=== PATIENT | female | born 1995 | race Caucasian/White ===

== ENCOUNTER 2018-12-06 15:15 | Emergency (ER) | payer SELFPAY ==
[2018-12-06 15:37] VITALS: BP 126/86
[2018-12-06] MEDS ORDERED: Ketorolac 30 MG/ML SDV IVPUSH ONE (16:07)
--- NOTE | 2018-12-06 16:25 | EDM.PDOC ---
ED HPI GENERAL MEDICAL PROBLEM - General Chief Complaint: Abdominal Pain Stated Complaint: RIGHT ABDOMINAL PAIN Time Seen by Provider: 12/06/18 15:33 Source of Information: Reports: Patient History Limitations: Reports: No Limitations - History of Present Illness INITIAL COMMENTS - FREE TEXT/NARRATIVE: 23 yo F A0 comes in today for RLQ abdominal pain that radiates to the suprapubic area as well as the top of her R leg x 2.5 days. She also c/o some abdominal bloating and CHEN. She states the pain had random onset and she denies any recent trauma to the area. Putting pressure on the area, holding her breath , and crouching in a ball make the pain better. Movement or letting go of pressure makes the pain worse. She said the last time she had this pain was when she had appendicitis in July 2018 (4 mo ago) which she had removed by Dr. Burch with no complications. She still has her GB. She denies F/C, vomiting, diarrhea, constipation, GI/ complaints. She states it's possible she's as she has unprotected sex with her boyfriend, and she may have an STD as she did have unprotected sex with a stranger about a month ago. No recent heavy lifting or h/o hernia or ovarian cysts. Last time she saw an BODY CLEANER was 2 years ago where they found a "cervical problem" but she is not sure what that is and didn't follow up. She denies any vaginal discharge, foul smelling odor, or pain with intercourse. Her LNMP was 11/28/18 and she did notice it was heavier at first with spotting the last few days. No other complaints at this time. PCP is Dr. Don Johnson in [place]. BODY CLEANER is Dr. Yohannes Campo at [facility]. Right Lower Abdominal Pain Score (Numeric/FACES): 8 - Related Data Allergies Allergy/AdvReac Type Severity Reaction Status Date / Time No Known Allergies Allergy Verified 07/27/18 08:53 Home Meds: Home Meds . 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 Cardiovascular History: Reports: Hypertension Other Cardiovascular History: during . Respiratory History: Reports: Asthma, Bronchitis, Recurrent Gastrointestinal History: Reports: Chronic Constipation Genitourinary History: Reports: UTI, Recurrent BODY CLEANER History: Reports: Other BODY CLEANER History: states has "an enlarged mass on my right ovary or cervix. " States was Dx'd one yr ago and never followed up. Neurological History: Reports: Migraines Psychiatric History: Reports: Addiction, Anxiety, Depression Hematologic History: Reports: Anemia - Infectious Disease History Other Infectious Disease History: STD's - Past Surgical History Head Surgeries/Procedures: Reports: None Social & Family History - Tobacco Use Smoking Status *Q: Current Every Day Smoker Years of Tobacco use: 4 Packs/Tins Daily: 0 Used Tobacco, but Quit: Yes Month/Year Tobacco Last Used: couple months ago Tobacco Use Comment: pt vapes now - Caffeine Use Caffeine Use: Reports: Coffee, Energy Drinks, Soda, Tea - Recreational Drug Use Recreational Drug Use: Yes Drug Use in Last 12 Months: No - Living Situation & Occupation Living situation: Reports: Single, with Family (has 3 children (2 year old twins , and a 3 year old).), Other (States that she is homeless, but currently staying with someone show knows.) ED ROS GENERAL - Review of Systems Review Of Systems: See Below Constitutional: Reports: No Symptoms. Denies: Fever, Chills, Decreased Appetite HEENT: Reports: No Symptoms Respiratory: Reports: No Symptoms Cardiovascular: Reports: No Symptoms Endocrine: Reports: No Symptoms GI/Abdominal: Reports: Abdominal Pain (RLQ radiating to suprapubic region and top of R leg). Denies: Diarrhea, Decreased Appetite, Nausea, Vomiting : Reports: Irregular Menses (was on Depoprovera and then had her 3 children). Denies: Discharge, Dysuria, Flank Pain, Frequency, Hematuria Musculoskeletal: Reports: No Symptoms Skin: Reports: No Symptoms Neurological: Reports: No Symptoms Psychiatric: Reports: No Symptoms Hematologic/Lymphatic: Reports: No Symptoms Immunologic: Reports: No Symptoms ED EXAM, GI/ABD - Physical Exam Exam: See Below Exam Limited By: No Limitations General Appearance: Alert, WD/WN, Mild Distress Eyes: Bilateral: Normal Appearance, EOMI Ears: Normal External Exam, Hearing Grossly Normal Nose: Normal Inspection, Normal Mucosa, No Blood Throat/Mouth: Normal Inspection, Normal Lips, Normal Teeth, Normal Gums, Normal Oropharynx, Normal Voice, No Airway Compromise Head: Atraumatic, Normocephalic Neck: Normal Inspection, Supple, Non-Tender, Full Range of Motion Respiratory/Chest: No Respiratory Distress, Lungs Clear, Normal Breath Sounds, No Accessory Muscle Use, Chest Non-Tender Cardiovascular: Normal Peripheral Pulses, Regular Rate, Rhythm, No Edema, No Gallop, No JVD, No Murmur, No Rub GI/Abdominal Exam: Normal Bowel Sounds, Soft, Non-Tender, No Organomegaly, No Abnormal Bruit, No Mass, Pelvis Stable, Distended (mild), Other (obturator sign positive, psoas and mcburney's pt negative). No: Guarding, Rebound, Hernia (Female) Exam: Deferred Back Exam: Normal Inspection, Full Range of Motion, NT Extremities: Normal Inspection, Normal Range of Motion, Non-Tender, Normal Capillary Refill, No Pedal Edema Psychiatric: Normal Affect, Normal Mood Skin Exam: Warm, Dry, Intact, Normal Color, No Rash Course - Vital Signs Last Recorded V/S: Last Vital Signs Temp 98.5 F 12/06/18 15:33 Pulse 73 12/06/18 15:33 Resp 18 12/06/18 15:33 BP 126/86 12/06/18 15:33 Pulse Ox 100 12/06/18 15:33 - Orders/Labs/Meds Orders: Active Orders 24 hr Category Date Time Status GC/CHLAMYDIA BY PCR [MOLEC] Stat Lab 12/06/18 16:22 Received Labs: Laboratory Tests 12/06/18 12/06/18 12/06/18 Range/Units 16:07 16:07 16:29 WBC 8.01 (3.98-10.04) K/mm3 RBC 4.13 (3.98-5.22) M/mm3 Hgb 12.7 (11.2-15.7) gm/L Hct 37.1 (34.1-44.9) % MCV 89.8 (79.4-94.8) fl MCH 30.8 (25.6-32.2) pg MCHC 34.2 (32.2-35.5) g/dl RDW Std Deviation 39.2 (36.4-46.3) fL Plt Count 253 (182-369) K/mm3 MPV 9.5 (9.4-12.3) fl Neut % (Auto) 60.2 (34.0-71.1) % Lymph % (Auto) 31.2 (19.3-51.7) % [place] % (Auto) 7.0 (4.7-12.5) % Eos % (Auto) 1.0 (0.7-5.8) Baso % (Auto) 0.5 (0.1-1.2) % Neut # (Auto) 4.82 (1.56-6.13) K/mm3 Lymph # (Auto) 2.50 (1.18-3.74) K/mm3 [place] # (Auto) 0.56 H (0.24-0.36) K/mm3 Eos # (Auto) 0.08 (0.04-0.36) K/mm3 Baso # (Auto) 0.04 (0.01-0.08) K/mm3 Sodium 142 (136-145) mEq/L Potassium 3.9 (3.5-5.1) mEq/L Chloride 106 (98-107) mEq/L Carbon Dioxide 27 (21-32) mEq/L Anion Gap 12.9 (5-15) BUN 11 (7-18) mg/dL Creatinine 0.8 (0.55-1.02) mg/dL Est Cr Clr Drug Dosing 99.25 mL/min Estimated GFR (MDRD) > 60 (>60) mL/min BUN/Creatinine Ratio 13.8 L (14-18) Glucose 91 (74-106) mg/dL Calcium 10.2 H (8.5-10.1) mg/dL Total Bilirubin 0.5 (0.2-1.0) mg/dL AST 16 (15-37) U/L ALT 20 (14-59) U/L Alkaline Phosphatase 126 H (46-116) U/L C-Reactive Protein < 0.2 (<1.0) mg/dL Total Protein 8.0 (6.4-8.2) g/dl Albumin 4.0 (3.4-5.0) g/dl Globulin 4.0 gm/dL Albumin/Globulin Ratio 1.0 (1-2) Urine Color Yellow (Yellow) Urine Appearance Clear (Clear) Urine pH 7.5 (5.0-8.0) Ur Specific Newton 1.025 (1.005-1.030) Urine Protein Negative (Negative) Urine Glucose (UA) Negative (Negative) Urine Ketones Negative (Negative) Urine Occult Blood Negative (Negative) Urine Nitrite Negative (Negative) Urine Bilirubin Negative (Negative) Urine Urobilinogen 0.2 (0.2-1.0) Ur Leukocyte Esterase Negative (Negative) Urine HCG, Qual (NEGATIVE) 12/06/18 Range/Units 16:29 WBC (3.98-10.04) K/mm3 RBC (3.98-5.22) M/mm3 Hgb (11.2-15.7) gm/L Hct (34.1-44.9) % MCV (79.4-94.8) fl MCH (25.6-32.2) pg MCHC (32.2-35.5) g/dl RDW Std Deviation (36.4-46.3) fL Plt Count (182-369) K/mm3 MPV (9.4-12.3) fl Neut % (Auto) (34.0-71.1) % Lymph % (Auto) (19.3-51.7) % [place] % (Auto) (4.7-12.5) % Eos % (Auto) (0.7-5.8) Baso % (Auto) (0.1-1.2) % Neut # (Auto) (1.56-6.13) K/mm3 Lymph # (Auto) (1.18-3.74) K/mm3 [place] # (Auto) (0.24-0.36) K/mm3 Eos # (Auto) (0.04-0.36) K/mm3 Baso # (Auto) (0.01-0.08) K/mm3 Sodium (136-145) mEq/L Potassium (3.5-5.1) mEq/L Chloride (98-107) mEq/L Carbon Dioxide (21-32) mEq/L Anion Gap (5-15) BUN (7-18) mg/dL Creatinine (0.55-1.02) mg/dL Est Cr Clr Drug Dosing mL/min Estimated GFR (MDRD) (>60) mL/min BUN/Creatinine Ratio (14-18) Glucose (74-106) mg/dL Calcium (8.5-10.1) mg/dL Total Bilirubin (0.2-1.0) mg/dL AST (15-37) U/L ALT (14-59) U/L Alkaline Phosphatase (46-116) U/L C-Reactive Protein (<1.0) mg/dL Total Protein (6.4-8.2) g/dl Albumin (3.4-5.0) g/dl Globulin gm/dL Albumin/Globulin Ratio (1-2) Urine Color (Yellow) Urine Appearance (Clear) Urine pH (5.0-8.0) Ur Specific Newton (1.005-1.030) Urine Protein (Negative) Urine Glucose (UA) (Negative) Urine Ketones (Negative) Urine Occult Blood (Negative) Urine Nitrite (Negative) Urine Bilirubin (Negative) Urine Urobilinogen (0.2-1.0) Ur Leukocyte Esterase (Negative) Urine HCG, Qual Negative (NEGATIVE) Meds: Medications Discontinued Medications Generic Name Dose Route Start Last Admin Trade Name Freq PRN Reason Stop Dose Admin Ketorolac Tromethamine 30 mg 12/06/18 16:07 12/06/18 16:16 Toradol IVPUSH 12/06/18 16:08 30 mg ONETIME ONE Administration - Re-Assessments/Exams Free Text/Narrative Re-Assessment/Exam: 12/06/18 16:00 I have ordered CBC, CMP, CRP, UA, Urine GC/Chlamydia, HCG Toradol 30 IV given for pain 12/06/18 16:46 UA not impressive for UTI. Urine HCG is negative. CBC WNL CT abdomen was being considered, but at this time with active bowel sounds, overall benign abdominal examination, h/o intercourse that isn't painful, and unremarkable labs it seems reasonable to send her home and have her follow up with PCP or Gynecology. She can also come back for a transvaginal u/s to r/o cyst, but at this time we do not have that available. She agrees with this plan and would like to come back tomorrow morning for the U/S. We will let radiology know and they will set that up with her tomorrow. I will call her if any abnormal results from the rest of her pending labs. Departure - Departure Time of Disposition: 17:04 Disposition: Home, Self-Care 01 Condition: Good Clinical Impression: Abdominal pain Qualifiers: Abdominal location: right lower quadrant Qualified Code(s): R10.31 - Right lower quadrant pain - Discharge Information *PRESCRIPTION DRUG MONITORING PROGRAM REVIEWED*: Not Applicable *COPY OF PRESCRIPTION DRUG MONITORING REPORT IN PATIENT PAULINE: Not Applicable Instructions: Abdominal Pain, Adult, [id number] Referrals: PCP,Not In Area [Primary Care Provider] - Forms: ED Department Discharge Additional Instructions: You were seen in the ED today for right sided lower abdominal pain x2.5 days. Your labs showed you were not and do not have a current infection. CT abdomen was considered, but with your workup it doesn't seem emergent at this time. It is recommended to follow up with your primary care provider and/or OBGYN for follow up, as this seems more suspicious for ovarian cyst. A transvaginal ultrasound is also recommended, but not available now, so radiology will call you to schedule in the morning, likely for around 7:30am. You may take over the counter ibuprofen up to 600mg every 6-8 hours as needed for pain, but only do this for a day or two, as jail use can lead to other complications. Please return to ED if new or worsening symptoms. You will be called with any remaining lab results that come back abnormal. - My Orders Last 24 Hours: My Active Orders 12/06/18 16:22 GC/CHLAMYDIA BY PCR [MOLEC] Stat - Assessment/Plan Last 24 Hours: My Active Orders 12/06/18 16:22 GC/CHLAMYDIA BY PCR [MOLEC] Stat
[2018-12-06 20:25] LABS: C. TRACHOMATIS BY PCR NOT DETECTED; N. GONORRHOEAE BY PCR NOT DETECTED
== END 2018-12-06 17:15 | disposition home or self-care (01) ==
LOC: JD.ED 15:15
DX: R10.31 Right lower quadrant pain (principal); I10 Essential (primary) hypertension; F17.210 Nicotine dependence, cigarettes, uncomplicated
CPT/HCPCS: 36415; 80053; 81003; 81025; 85025; 86140; 87491; 87591; 96374; 99284; J1885

== ENCOUNTER 2019-08-31 10:37 | Emergency (ER) | payer MEDICAID ==
[2019-08-31] MEDS ORDERED: Sodium Chloride 0.9% 10 ML Syringe FLUSH PRN (11:06)
[2019-08-31] MEDS ORDERED: Ondansetron 4 MG/2 ML SDV IVPUSH ONE (11:06)
[2019-08-31] MEDS ORDERED: Sodium Chloride 0.9% 1,000 ML IV STA (11:06)
[2019-08-31] MEDS ORDERED: HYDROmorphone 0.5 MG/0.5 ML Syringe IVPUSH ONE (11:07)
[2019-08-31] MEDS ORDERED: FLU Vacc QS2019-20(6MOS+)/PF 60 MCG/0.5 ML SYRINGE IM ONE (11:15)
--- NOTE | 2019-08-31 11:27 | EDM.PDOC ---
ED HPI GENERAL MEDICAL PROBLEM - General Chief Complaint: Abdominal Pain Stated Complaint: R SIDE ABDOMINAL PAIN Time Seen by Provider: 08/31/19 10:52 Source of Information: Reports: Patient History Limitations: Reports: No Limitations - History of Present Illness INITIAL COMMENTS - FREE TEXT/NARRATIVE: The patient presents with right lower abdominal pain. This started a few days ago. She has nausea but no vomiting. She has not had a period since June. She did have a negative test then at [place]. She had unprotected intercourse since then. She had her appendix out last year. She has no fever or chills. She has a productive cough and that has been going on for about a week. She has no dysuria or hematuria. She still has her appendix. Onset: Gradual Duration: Day(s): Location: Reports: Abdomen (Right lower abdomen) Quality: Reports: Sharp Severity: Severe Improves with: Reports: None Worsens with: Reports: Movement (and coughing) Associated Symptoms: Reports: Cough, Nausea/Vomiting. 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 Cardiovascular History: Reports: Hypertension Other Cardiovascular History: during . 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 " States was Dx'd one yr ago and never followed up. Neurological History: Reports: Migraines Psychiatric History: Reports: Addiction, Anxiety, Depression Hematologic History: Reports: Anemia - Infectious Disease History Other Infectious Disease History: STD's - Past Surgical History Head Surgeries/Procedures: Reports: None GI Surgical History: Reports: Appendectomy Social & Family History - Tobacco Use Smoking Status *Q: Former Smoker Years of Tobacco use: 3 Packs/Tins Daily: 0.5 Used Tobacco, but Quit: Yes Month/Year Tobacco Last Used: Jun 2019 - Caffeine Use Caffeine Use: Reports: Coffee, Energy Drinks, Soda - Recreational Drug Use Recreational Drug Use: No - Living Situation & Occupation Living situation: Reports: Single, with Family (has 3 children (2 year old twins , and a 3 year old).), Other (States that she is homeless, but currently staying with someone show knows.) ED ROS GENERAL - Review of Systems Review Of Systems: See Below Constitutional: Reports: No Symptoms HEENT: Reports: No Symptoms Respiratory: Reports: Cough. Denies: Shortness of Breath Cardiovascular: Reports: No Symptoms Endocrine: Reports: No Symptoms GI/Abdominal: Reports: Abdominal Pain, Nausea. Denies: Diarrhea, Vomiting : Reports: No Symptoms Musculoskeletal: Reports: No Symptoms ED EXAM, GI/ABD - Physical Exam Exam: See Below Exam Limited By: No Limitations General Appearance: Alert, No Apparent Distress Ears: Normal External Exam Nose: Normal Inspection Head: Atraumatic, Normocephalic Neck: Normal Inspection Respiratory/Chest: No Respiratory Distress, Lungs Clear, Normal Breath Sounds Cardiovascular: Regular Rate, Rhythm, No Edema, No Murmur GI/Abdominal Exam: Soft, No Organomegaly, No Mass, Tender (Moderate tenderness to the right lower abdomen) (Female) Exam: Normal External Exam, Normal Speculum Exam, Normal Bimanual Exam Course - Vital Signs Last Recorded V/S: Last Vital Signs Temp 97.3 F 08/31/19 10:50 Pulse 84 08/31/19 10:50 Resp 20 08/31/19 10:50 BP 112/71 08/31/19 10:50 Pulse Ox 99 08/31/19 10:50 - Orders/Labs/Meds Orders: Active Orders 24 hr Category Date Time Status Influenza Vaccine Charge [RC] .DISCHARGE Care 08/31/19 11:06 Active Pelvic Exam, Set Up [RC] ASDIRECTED Care 08/31/19 14:15 Active Peripheral IV Care [RC] . DIRECTED Care 08/31/19 11:06 Active GC/CHLAMYDIA BY PCR [MOLEC] Stat Lab 08/31/19 14:16 Ordered UA W/MICROSCOPIC [URIN] Stat Lab 08/31/19 11:06 Ordered WET PREP [MYC] Stat Lab 08/31/19 14:16 Ordered Sodium Chloride 0.9% [Saline Flush] Med 08/31/19 11:06 Active 10 ml FLUSH ASDIRECTED PRN ED Antiemetic Medication Reflex [OM.PC] Stat Oth 08/31/19 11:06 Ordered Peripheral IV Insertion Adult [OM.PC] Stat Oth 08/31/19 11:06 Ordered Medication Orders Sodium Chloride (Saline Flush) 10 ml FLUSH ASDIRECTED PRN PRN Reason: Keep Vein Open Last Admin: 08/31/19 11:20 Dose: 10 ml Labs: Laboratory Tests 08/31/19 08/31/19 08/31/19 Range/Units 11:10 11:10 11:10 WBC 7.19 (3.98-10.04) K/mm3 RBC 4.33 (3.98-5.22) M/mm3 Hgb 13.1 (11.2-15.7) gm/dl Hct 39.1 (34.1-44.9) % MCV 90.3 (79.4-94.8) fl MCH 30.3 (25.6-32.2) pg MCHC 33.5 (32.2-35.5) g/dl RDW Std Deviation 40.7 (36.4-46.3) fL Plt Count 230 (182-369) K/mm3 MPV 9.6 (9.4-12.3) fl Neut % (Auto) 59.3 (34.0-71.1) % Lymph % (Auto) 28.5 (19.3-51.7) % Wolfe % (Auto) 7.4 (4.7-12.5) % Eos % (Auto) 4.2 (0.7-5.8) Baso % (Auto) 0.6 (0.1-1.2) % Neut # (Auto) 4.27 (1.56-6.13) K/mm3 Lymph # (Auto) 2.05 (1.18-3.74) K/mm3 Wolfe # (Auto) 0.53 H (0.24-0.36) K/mm3 Eos # (Auto) 0.30 (0.04-0.36) K/mm3 Baso # (Auto) 0.04 (0.01-0.08) K/mm3 Sodium 141 (136-145) mEq/L Potassium 3.7 (3.5-5.1) mEq/L Chloride 106 (98-107) mEq/L Carbon Dioxide 24 (21-32) mEq/L Anion Gap 14.7 (5-15) BUN 14 (7-18) mg/dL Creatinine 0.7 (0.55-1.02) mg/dL Est Cr Clr Drug Dosing 112.47 mL/min Estimated GFR (MDRD) > 60 (>60) mL/min BUN/Creatinine Ratio 20.0 H (14-18) Glucose 103 (74-106) mg/dL Calcium 8.5 D (8.5-10.1) mg/dL Total Bilirubin 0.4 (0.2-1.0) mg/dL AST 22 (15-37) U/L ALT 21 (14-59) U/L Alkaline Phosphatase 127 H (46-116) U/L Total Protein 7.8 (6.4-8.2) g/dl Albumin 3.6 (3.4-5.0) g/dl Globulin 4.2 gm/dL Albumin/Globulin Ratio 0.9 L (1-2) Lipase 66 L (73-393) U/L HCG, Qual Negative (NEGATIVE) Meds: Medications Generic Name Dose Route Start Last Admin Trade Name Freq PRN Reason Stop Dose Admin Sodium Chloride 10 ml 08/31/19 11:06 08/31/19 11:20 Saline Flush FLUSH 10 ml ASDIRECTED PRN Administration Keep Vein Open Discontinued Medications Generic Name Dose Route Start Last Admin Trade Name Freq PRN Reason Stop Dose Admin Hydromorphone HCl 0.5 mg 08/31/19 11:07 08/31/19 11:22 Dilaudid IVPUSH 08/31/19 11:08 0.5 mg ONETIME ONE Administration Sodium Chloride 1,000 mls @ 1,000 mls/hr 08/31/19 11:06 08/31/19 11:24 Normal Saline IV 08/31/19 12:05 1,000 mls/hr .BOLUS STA Administration Influenza Virus Vaccine 60 mcg 08/31/19 11:15 08/31/19 11:31 Fluzone Quad [id number] Syringe IM 08/31/19 11:16 60 mcg .ONCE ONE Administration Ondansetron HCl 4 mg 08/31/19 11:06 08/31/19 11:20 Zofran IVPUSH 08/31/19 11:07 4 mg ONETIME ONE Administration - Re-Assessments/Exams Free Text/Narrative Re-Assessment/Exam: 08/31/19 11:26 I ordered an IV NS 1L bolus, zofran 4mg IV, dilaudid 0.5mg IV, labs, and UA. 08/31/19 14:56 Her CBC and CMP look good. Her lipase is normal. Her HCG is negative. Her US shows small amount of fluid within the cul-de-sac which is believed to be physiologic. Pelvic US is otherwise unremarkable. 08/31/19 15:01 I did a pelvic exam and got some swabs for GC and wet prep. She also gave us a urine sample. She feels better. She tells me later that she has been doing more core training with sit ups and planks. This could be contributing to her abdominal pain. She needs to go and take care of her daughters. I will discharge her and call her the results. Departure - Departure Time of Disposition: 15:05 Disposition: Home, Self-Care 01 Condition: Good Clinical Impression: Abdominal pain Qualifiers: Abdominal location: right lower quadrant Qualified Code(s): R10.31 - Right lower quadrant pain Abdominal wall strain Qualifiers: Encounter type: initial encounter Qualified Code(s): S39.011A - Strain of muscle, fascia and tendon of abdomen, initial encounter - Discharge Information *PRESCRIPTION DRUG MONITORING PROGRAM REVIEWED*: Not Applicable *COPY OF PRESCRIPTION DRUG MONITORING REPORT IN PATIENT PAULINE: Not Applicable Prescriptions: Naproxen [Naprosyn] 500 mg PO Q12HR PRN #30 tab PRN Reason: Pain Referrals: Don Johnson MD [Primary Care Provider] - 1 Week Forms: ED Department Discharge Additional Instructions: Take the naprosyn every 12 hours as needed for pain. Ice the area that hurts for 15 minutes 3 times per day for 2 days. Try some stretching. Please return if you are worse. Sepsis Event Note - Evaluation Sepsis Screening Result: No Definite Risk - Focused Exam Vital Signs: Vital Signs Temp Pulse Resp BP Pulse Ox 08/31/19 10:50 97.3 F 84 20 112/71 99 Date Exam was Performed: 08/31/19 Time Exam was Performed: 14:56 - My Orders Last 24 Hours: My Active Orders 08/31/19 11:06 Influenza Vaccine Charge [RC] .DISCHARGE Peripheral IV Care [RC] . DIRECTED UA W/MICROSCOPIC [URIN] Stat Sodium Chloride 0.9% [Saline Flush] 10 ml FLUSH ASDIRECTED PRN ED Antiemetic Medication Reflex [OM.PC] Stat Peripheral IV Insertion Adult [OM.PC] Stat 08/31/19 14:15 Pelvic Exam, Set Up [RC] ASDIRECTED 08/31/19 14:16 GC/CHLAMYDIA BY PCR [MOLEC] Stat WET PREP [MYC] Stat - Assessment/Plan Last 24 Hours: My Active Orders 08/31/19 11:06 Influenza Vaccine Charge [RC] .DISCHARGE Peripheral IV Care [RC] . DIRECTED UA W/MICROSCOPIC [URIN] Stat Sodium Chloride 0.9% [Saline Flush] 10 ml FLUSH ASDIRECTED PRN ED Antiemetic Medication Reflex [OM.PC] Stat Peripheral IV Insertion Adult [OM.PC] Stat 08/31/19 14:15 Pelvic Exam, Set Up [RC] ASDIRECTED 08/31/19 14:16 GC/CHLAMYDIA BY PCR [MOLEC] Stat WET PREP [MYC] Stat
--- NOTE | 2019-08-31 14:10 | US ---
Pelvic ultrasound: Multiple real-time images were obtained transvaginally. Comparison: No prior pelvic ultrasound. Uterus is retroverted. No myometrial abnormality is seen. Endometrial thickness is 4.5 mm. Small amount of fluid is seen within cul-de-sac which is believed to be physiologic. Follicle seen within both ovaries. No larger cyst or solid abnormality is appreciated. Measurements: Uterus: Length 7.2 cm, AP height 4.0 cm, transverse width 5.3 cm Right ovary: 3.3 x 2.1 x 2.5 cm Left ovary: 3.2 x 1.6 x 1.7 cm Impression: 1. Small amount of fluid within the cul-de-sac which is believed to be physiologic. 2. Pelvic ultrasound is otherwise unremarkable. Diagnostic code #2 This report was dictated in [place] Standard Time
[2019-08-31 15:24] VITALS: BP 99/56; PULSE 76
[2019-08-31 16:44] LABS: C. TRACHOMATIS BY PCR NOT DETECTED; N. GONORRHOEAE BY PCR NOT DETECTED
== END 2019-08-31 15:28 | disposition home or self-care (01) ==
LOC: JD.ED 10:37
DX: S39.011A Strain of muscle, fascia and tendon of abdomen, initial encounter (principal); Z87.891 Personal history of nicotine dependence; Z23 Encounter for immunization; X58.XXXA Exposure to other specified factors, initial encounter
CPT/HCPCS: 36415; 76830; 80053; 81001; 83690; 84703; 85025; 87210; 87491; 87591; 87808; 90471; 90686; 96361; 96374; 96375; 99284; J1170; J2405; J7030; G0008

== ENCOUNTER 2020-04-20 13:40 | Emergency (ER) | payer MEDICAID ==
[2020-04-20] MEDS ORDERED: Sodium Chloride 0.9% 10 ML Syringe FLUSH PRN (13:45)
[2020-04-20 13:47] VITALS: BP 136/94; PULSE 114
--- NOTE | 2020-04-20 15:04 | US ---
Pelvic ultrasound: Multiple real-time images were obtained transvaginally. Transit abdominal imaging also obtained. Technologist' note: Unable to finish transvaginal exam, which was desired by the patient Left ovary shows follicles. Right ovary not visualized. Uterus is retroverted. Very minimal hypoechoic area is seen within the endometrial cavity measuring 4 mm. Good endometrial stripe is not seen to allow for measurements of endometrial thickness. No free fluid is seen. No myometrial abnormality is seen. Impression: 1. Minimal hypoechoic area within the endometrial cavity possibly due to a small amount of residual products of conception or small blood clot. 2. Nonvisualized right ovary. 3. Normal left ovary. Diagnostic code #3 This report was dictated in MDT
--- NOTE | 2020-04-20 15:34 | EDM.PDOC ---
<AureIan holley Tamela - Last Filed: 04/20/20 15:21> ED HPI GENERAL MEDICAL PROBLEM - General Chief Complaint: [employer] Problem Stated Complaint: POSS MISCARRIAGE/PAIN Time Seen by Provider: 04/20/20 13:45 Source of Information: Reports: Patient History Limitations: Reports: No Limitations - History of Present Illness INITIAL COMMENTS - FREE TEXT/NARRATIVE: Dee Dee is a 24 YO A1 female that presents to the ED with a sudden onset of vaginal bleeding and pelvic pain. She was sitting on her couch at approximately 1230 when she developed a sharp pain in the lower abdomen. She believed that she was needing to have a bowel movement but when she went to the bathroom noticed excessive vaginal bleeding. Unknown estimate of amount of blood loss but states that water in toilet was a dark red. She has also had 2 small and 1 large clot. Large clot estimated at approximately 3/4 inch in diameter. Shortly before arriving at the ED, the pain progressed into a cramping sensation. Pain rated at 10/10 at beginning and 7/10 upon ED arrival. Admits to approximately 3 months ago. States that she had heavy bleeding for one month after. Began Depo provera on 02/28/2020 and has not had vaginal bleeding or spotting since 03/01/2020. Denies trauma to vagina or pelvic area. Has taken ibuprofen but has not had pain relief. 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 Cardiovascular History: Reports: Hypertension Other Cardiovascular History: during . Respiratory History: Reports: Asthma, Bronchitis, Recurrent Gastrointestinal History: Reports: Chronic Constipation Genitourinary History: Reports: UTI, Recurrent [employer] History: Reports: Other [employer] History: states has "an enlarged mass on my right ovary or cervix." States was Dx'd one yr ago and never followed up. Neurological History: Reports: Migraines Psychiatric History: Reports: Addiction, Anxiety, Depression Hematologic History: Reports: Anemia - Infectious Disease History Other Infectious Disease History: STD's - Past Surgical History GI Surgical History: Reports: Appendectomy Social & Family History - Tobacco Use Smoking Status *Q: Current Every Day Smoker Years of Tobacco use: 1 Packs/Tins Daily: 0.5 - Caffeine Use Caffeine Use: Reports: Coffee, Tea - Recreational Drug Use Recreational Drug Use: No - Living Situation & Occupation Living situation: Reports: Single, with Family (has 3 children (2 year old twins, and a 3 year old).), Other (States that she is homeless, but currently staying with someone show knows.) ED ROS GENERAL - Review of Systems Review Of Systems: See Below Constitutional: Denies: Fever Respiratory: Denies: Shortness of Breath GI/Abdominal: Denies: Abdominal Pain, Nausea, Vomiting : Reports: Pain, Other (Vaginal bleeding. ). Denies: Dysuria, Flank Pain ED EXAM, GI/ABD - Physical Exam Exam: See Below Exam Limited By: No Limitations General Appearance: Alert, No Apparent Distress Head: Atraumatic, Normocephalic Respiratory/Chest: No Respiratory Distress, Lungs Clear, Normal Breath Sounds, No Accessory Muscle Use, Chest Non-Tender Cardiovascular: Regular Rate, Rhythm, No Gallop, No Murmur, No Rub GI/Abdominal Exam: Normal Bowel Sounds, Soft, Tender Neurological: Alert, Oriented Skin Exam: Warm, Dry, Normal Color Departure - Departure Disposition: Home, Self-Care 01 Clinical Impression: Dysfunctional uterine bleeding - Discharge Information Instructions: Metrorrhagia, [id number] Referrals: Don Johnson MD [Primary Care Provider] - Forms: ED Department Discharge, ED Return to Work/School Form Additional Instructions: You were evaluated in the ER today regarding your vaginal bleeding and abdominal cramping. You had an ultrasound performed, and some lab work, which demonstrated a possible blood clot on the ultrasound, but you are not by our lab standards. Your blood type is O+. I did consult with [employer], regarding your clinical case and ultrasound results, and she states it is common for patients who get the Depo shot to have heavy bleeding/clots, and some abdominal cramping within the first month or 2 of taking the Depo. I would recommend strict return to the ER, if your bleeding through more than 2 pads per hour. As this would be more concerned that you are losing too much blood. You may take Tylenol/ibuprofen for pain management, and use heat pads to your abdomen to help relieve some of the pain/cramping. You may follow-up with Dr. Rasmussen if you should choose to do so follow-up [facility] [employer] [facility], or you may follow-up with your [employer] in [place] as needed. Try to keep yourself well-hydrated, and recommend you take a medication like MiraLAX or stool softener to help soften your stools and promote regular bowel health Please return to the ER at any time if symptoms change or worsen. Sepsis Event Note (ED) - Evaluation Sepsis Screening Result: No Definite Risk <Maria Fernanda Callejas - Last Filed: 04/20/20 17:04> ED EXAM, GI/ABD - Physical Exam (Female) Exam: Normal External Exam, Adnexal Tenderness (right sided), Vaginal Bleeding (slight amount of dark red vaginal bleeding and clots). No: Products of Conception Course - Vital Signs Last Recorded V/S: Last Vital Signs Temp 99.5 F 04/20/20 13:46 Pulse 114 H 04/20/20 13:46 Resp 20 04/20/20 13:46 BP 136/94 H 04/20/20 13:46 Pulse Ox 95 04/20/20 13:46 - Orders/Labs/Meds Orders: Active Orders 24 hr Category Date Time Status Peripheral IV Care [RC] . DIRECTED Care 04/20/20 13:52 Active PATIENT RETYPE [BBK] Routine Lab 04/20/20 15:37 Ordered Sodium Chloride 0.9% [Saline Flush] Med 04/20/20 13:45 Active 10 ml FLUSH ASDIRECTED PRN Peripheral IV Insertion Adult [OM.PC] Stat Oth 04/20/20 13:45 Ordered Medication Orders Sodium Chloride (Saline Flush) 10 ml FLUSH ASDIRECTED PRN PRN Reason: Keep Vein Open Last Admin: 04/20/20 14:21 Dose: 10 ml Documented by: ELIS Labs: Laboratory Tests 04/20/20 04/20/20 04/20/20 Range/Units 14:33 14:33 14:33 WBC 8.98 (3.98-10.04) K/mm3 RBC 4.34 (3.98-5.22) M/mm3 Hgb 13.4 (11.2-15.7) gm/dl Hct 38.9 (34.1-44.9) % MCV 89.6 (79.4-94.8) fl MCH 30.9 (25.6-32.2) pg MCHC 34.4 (32.2-35.5) g/dl RDW Std Deviation 39.6 (36.4-46.3) fL Plt Count 194 (182-369) K/mm3 MPV 10.0 (9.4-12.3) fl Neut % (Auto) 82.5 H (34.0-71.1) % Lymph % (Auto) 6.5 L (19.3-51.7) % Talbot % (Auto) 6.5 (4.7-12.5) % Eos % (Auto) 3.9 (0.7-5.8) Baso % (Auto) 0.4 (0.1-1.2) % Neut # (Auto) 7.41 H (1.56-6.13) K/mm3 Lymph # (Auto) 0.58 L (1.18-3.74) K/mm3 Talbot # (Auto) 0.58 H (0.24-0.36) K/mm3 Eos # (Auto) 0.35 (0.04-0.36) K/mm3 Baso # (Auto) 0.04 (0.01-0.08) K/mm3 Manual Slide Review Normal smear HCG, Qual (NEGATIVE) HCG, Quant 1.0 mIU/mL Blood Type O POSITIVE Gel Antibody Screen Negative 04/20/20 Range/Units 14:33 WBC (3.98-10.04) K/mm3 RBC (3.98-5.22) M/mm3 Hgb (11.2-15.7) gm/dl Hct (34.1-44.9) % MCV (79.4-94.8) fl MCH (25.6-32.2) pg MCHC (32.2-35.5) g/dl RDW Std Deviation (36.4-46.3) fL Plt Count (182-369) K/mm3 MPV (9.4-12.3) fl Neut % (Auto) (34.0-71.1) % Lymph % (Auto) (19.3-51.7) % Talbot % (Auto) (4.7-12.5) % Eos % (Auto) (0.7-5.8) Baso % (Auto) (0.1-1.2) % Neut # (Auto) (1.56-6.13) K/mm3 Lymph # (Auto) (1.18-3.74) K/mm3 Talbot # (Auto) (0.24-0.36) K/mm3 Eos # (Auto) (0.04-0.36) K/mm3 Baso # (Auto) (0.01-0.08) K/mm3 Manual Slide Review HCG, Qual Negative (NEGATIVE) HCG, Quant mIU/mL Blood Type Gel Antibody Screen Meds: Medications Generic Name Dose Route Start Last Admin Trade Name Freq PRN Reason Stop Dose Admin Sodium Chloride 10 ml 04/20/20 13:45 04/20/20 14:21 Saline Flush FLUSH 10 ml ASDIRECTED PRN Administration Keep Vein Open Discontinued Medications Generic Name Dose Route Start Last Admin Trade Name Freq PRN Reason Stop Dose Admin Hydromorphone HCl 0.5 mg 04/20/20 15:47 04/20/20 16:00 Dilaudid IVPUSH 04/20/20 15:48 0.5 mg ONETIME ONE Administration - Re-Assessments/Exams Free Text/Narrative Re-Assessment/Exam: 04/20/20 15:58 I have read and reviewed the student's HPI and examined the patient and agree with [facility] Leary-student. Work-up today in the ER demonstrates no anemia, patient is not by qualitative and quantitative hCG. Pelvic exam does show a little bit of dark maroon-red blood. I did call Dr. Rogers with ultrasound results as it demonstrated a minimal hypoechoic area within the endometrial cavity possibly due to a small amount of residual products of conception or a small blood clot. She had a normal left ovary, nonvisualized right ovary at this exam. Patient does not have her appendix. Dr. Rasmussen states that with her being on the Depo-Provera, and getting in [place] 8, sometimes within the first month or 2 you can get pretty heavy bleeding and cramps. She believes this is likely what is causing the pain. Patient can follow-up with her in clinic if she would desire to do so. I will give her general recommendations and have her follow-up with [employer] as needed. Departure - Departure Time of Disposition: 16:00 Condition: Good - Discharge Information *PRESCRIPTION DRUG MONITORING PROGRAM REVIEWED*: No *COPY OF PRESCRIPTION DRUG MONITORING REPORT IN PATIENT PAULINE: No Sepsis Event Note (ED) - Focused Exam Vital Signs: Vital Signs Temp Pulse Resp BP Pulse Ox 04/20/20 13:46 99.5 F 114 H 20 136/94 H 95 - My Orders Last 24 Hours: My Active Orders 04/20/20 13:45 Sodium Chloride 0.9% [Saline Flush] 10 ml FLUSH ASDIRECTED PRN Peripheral IV Insertion Adult [OM.PC] Stat 04/20/20 13:52 Peripheral IV Care [RC] . DIRECTED 04/20/20 15:37 PATIENT RETYPE [BBK] Routine - Assessment/Plan Last 24 Hours: My Active Orders 04/20/20 13:45 Sodium Chloride 0.9% [Saline Flush] 10 ml FLUSH ASDIRECTED PRN Peripheral IV Insertion Adult [OM.PC] Stat 04/20/20 13:52 Peripheral IV Care [RC] . DIRECTED 04/20/20 15:37 PATIENT RETYPE [BBK] Routine
[2020-04-20] MEDS ORDERED: HYDROmorphone 0.5 MG/0.5 ML Syringe IVPUSH ONE (15:47)
== END 2020-04-20 17:08 | disposition home or self-care (01) ==
LOC: JD.ED 13:40
DX: N93.8 Other specified abnormal uterine and vaginal bleeding (principal); I10 Essential (primary) hypertension; J45.909 Unspecified asthma, uncomplicated; F17.210 Nicotine dependence, cigarettes, uncomplicated
CPT/HCPCS: 36415; 76817; 84702; 84703; 85025; 86850; 86900; 86901; 96374; 99284; J1170; 99283

== ENCOUNTER 2021-08-18 12:38 | Emergency (ER) | payer MEDICAID ==
--- NOTE | 2021-08-18 14:46 | EDM.PDOC ---
ED HPI GENERAL MEDICAL PROBLEM - General Chief Complaint: Respiratory Problem Stated Complaint: BODY ACHES,CHEST PAIN Time Seen by Provider: 08/18/21 13:29 Source of Information: Reports: Patient History Limitations: Reports: No Limitations - History of Present Illness INITIAL COMMENTS - FREE TEXT/NARRATIVE: 26-year-old female presents the emergency department with complaints of fever, body aches, sneezing, scratchy throat, chest pressure and shortness of breath that started 2 days ago. States Covid vaccine. She states that she has had some left-sided chest discomfort associated with coughing. States that she is also had some nausea and had decreased appetite. She does have a history of asthma and states she has been using her inhaler. 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 Cardiovascular History: Reports: Hypertension Other Cardiovascular History: during . 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 Neurological History: Reports: Migraines Psychiatric History: Reports: Addiction, Anxiety, Bipolar, Depression, PTSD Hematologic History: Reports: Anemia - Infectious Disease History Other Infectious Disease History: STD's - Past Surgical History GI Surgical History: Reports: Appendectomy Social & Family History - Tobacco Use Tobacco Use Status *Q: Never Tobacco User - Caffeine Use Caffeine Use: Reports: Coffee Caffeine Use Comment: States she drinks coffee all day long. - Recreational Drug Use Recreational Drug Use: Yes Drug Use in Last 12 Months: Yes Recreational Drug Type: Reports: Marijuana/Hashish Recreational Drug Use Frequency: Daily - Living Situation & Occupation Living situation: Reports: Single, with Family (has 3 children (2 year old twins, and a 3 year old).), Other (States that she is homeless, but currently staying with someone show knows.) ED ROS GENERAL - Review of Systems Review Of Systems: Comprehensive ROS is negative, except as noted in HPI. ED EXAM, GENERAL - Physical Exam Exam: See Below Exam Limited By: No Limitations General Appearance: Alert, WD/WN, No Apparent Distress Ears: Normal External Exam, Hearing Grossly Normal Nose: Normal Inspection Throat/Mouth: Normal Inspection, Normal Lips, Normal Voice, No Airway Compromise Head: Atraumatic, Normocephalic Neck: Normal Inspection, Supple Respiratory/Chest: No Respiratory Distress, Lungs Clear, Normal Breath Sounds, No Accessory Muscle Use. No: Chest Non-Tender (Right-sided chest wall tenderness) Cardiovascular: Normal Peripheral Pulses, Regular Rate, Rhythm, No Edema, No Murmur Peripheral Pulses: 2+: Radial (L), Radial (R) GI/Abdominal: Normal Bowel Sounds, Soft, Non-Tender, No Distention (Female) Exam: Deferred Rectal (Female) Exam: Deferred Back Exam: Normal Inspection, Full Range of Motion Extremities: Normal Inspection, Normal Range of Motion, Non-Tender, No Pedal Edema, Normal Capillary Refill Neurological: Alert, Oriented, Normal Cognition Psychiatric: Normal Affect, Normal Mood Skin Exam: Warm, Dry, Intact, Normal Color, No Rash Lymphatic: No Adenopathy Course - Vital Signs Text/Narrative:: Physical exam is essentially unremarkable. Patient's lung sounds are clear bilaterally. She is hemodynamically stable. Covid test comes back as negative at this time. Patient likely has a viral infection. Patient will be discharged home with recommendations that she quarantine for 8 more days. She can follow-up with her primary care provider when she has completed her quarantine. - Orders/Labs/Meds Labs: Laboratory Tests 08/18/21 Range/Units 13:30 SARS-CoV-2 RNA (MYLA) Negative (NEGATIVE) Departure - Departure Time of Disposition: 14:44 Disposition: Home, Self-Care 01 Condition: Good Clinical Impression: Viral URI with cough - Discharge Information Prescriptions: Benzonatate [Tessalon Perles] 100 mg PO TID PRN #15 cap PRN Reason: Cough Instructions: Upper Respiratory Infection, Adult, [id number] Referrals: Don Johnson MD [Primary Care Provider] - Additional Instructions: He was seen in the emergency department today with upper respiratory symptoms with associated nausea. You were tested for Covid today however this test did come back negative. Recommend that you quarantine for the next 7 days as it could be too early to obtain a positive test. Recommend taking ibuprofen for your chest discomfort as this is likely due to coughing. You may take ibuprofen 600 mg every 6-8 hours as needed. Be sure to take this medication with food. I have sent prescription to your pharmacy for a medication called Jamar Gonsalez. This medication is used for cough. You may take 1 tab up to 3 times daily recommend spacing it out every 8 hours. You will likely need to follow-up with your primary care provider in 10 days time for reevaluation. Be sure to drink plenty of fluids and get plenty of rest.
== END 2021-08-18 15:25 | disposition home or self-care (01) ==
LOC: JD.ED 12:38
DX: J06.9 Acute upper respiratory infection, unspecified (principal); I10 Essential (primary) hypertension; J45.909 Unspecified asthma, uncomplicated; Z79.899 Other long term (current) drug therapy; Z20.822 Contact with and (suspected) exposure to COVID-19
CPT/HCPCS: 99283; U0002

== ENCOUNTER 2022-01-29 00:49 | Emergency (ER) | payer MEDICAID ==
[2022-01-29 01:01] VITALS: BP 146/129; PULSE 108
== END 2022-01-29 07:27 | disposition home or self-care (01) ==
LOC: JD.ED 00:49
DX: F15.229 Other stimulant dependence with intoxication, unspecified (principal); Z28.310 Unvaccinated for COVID-19; Z72.0 Tobacco use
CPT/HCPCS: 99283

== ENCOUNTER → 2022-03-24 18:19 | Emergency (ER) | payer MEDICAID | END | disposition left against medical advice (07) | LOC: JD.ED 18:19 | DX: Z53.21 Procedure and treatment not carried out due to patient leaving prior to being seen by health care provider (principal) ==